=== PATIENT | male | born 1970 | race Caucasian/White ===

== ENCOUNTER 2018-10-05 21:48 | Emergency (ER) | payer MEDICAID, SELFPAY ==
[2018-10-05 21:52] VITALS: BP 136/61; PULSE 100; RESP 20; TEMP 36.7; O2SAT 99
--- NOTE | 2018-10-05 21:56 | DI.RAD_ITS ---
SYMPTOM/DIAGNOSIS: FELL, PAIN RIGHT ANKLE: No fracture or ankle mortise widening is seen. No talar dome defect is seen. There is spurring at the Achilles insertion on the calcaneus. IMPRESSION: No acute abnormality.
--- NOTE | 2018-10-05 21:57 | W.ED.GENAD ---
Discharge Plan Disposition Patient Disposition: HOME Condition: Good Discharge Details Chief Complaint: Orthopedic Clinical Impression: Right ankle pain Primary Care Provider: [place] [place] Provider: Alfredo Yen Home Meds and New Rx's Prescriptions: No Action metformin 1,000 mg Tablet 1,000 mg PO BID RF: 0 cholecalciferol (vitamin D3) [Vitamin D3] 1,000 unit Capsule 1,000 unit PO DAILY RF: 0 celecoxib [Celebrex] 50 mg Capsule 50 mg PO BID RF: 0 melatonin 10 mg Tablet 20 mg PO HS PRNRF: 0 Discharge Instructions Instructions: Leg Pain (ED) Additional Instructions: Please take Tylenol and Motrin as needed for pain. Please use ice on and off every 15-minute of your ankle to reduce the swelling. Please use the brace as directed. if you notice any worsening of your symptoms, or any new symptoms such as vomiting, diarrhea, fever, chills, shortness of breath, chest pain, numbness, weakness, or fainting , please return immediately to the emergency department for reevaluation. Please follow up with your primary care provider as soon as possible for reassessment and reevaluation. As always, it was a pleasure participating in your medical care today. Referrals: [place] [Primary Care Provider] - Medical Decision Making This is a pleasant 48-year-old male who presents with pain in his right ankle after jumping one-story off of his house. He thought he was going to land in a snow bank but he did not. He has notable pain at the medial and lateral malleoli. I am concern for potential fracture. He does ambulate with a notable limp while utilizing a cane physical exam demonstrates normal neurovascular exam, no sensory deficits or vascular deficits. We will get an x-ray to rule out fracture. We will give Tylenol Motrin for pain. 10:38 PM X-ray results per virtual radiology have returned and demonstrate no evidence of acute process or fracture. We will give him a lace up ankle brace, he has a cane already, and continued instructions for Tylenol Motrin and ice. We discussed red flags which to return he understands. I have extensively reviewed the treatment plan and discharge instructions with the patient. I have addressed all patient concerns at this time. The patient was made aware of what symptoms to monitor for that would warrant a return to the emergency department. Discussed the plan with the patient, they demonstrate verbal understanding and agreement with our assessment and plan at this time. FINDINGS: Bones/joints: No acute fracture or subluxation. Posterior calcaneal spur. Soft tissues: Normal. IMPRESSION: No acute bony pathology. Thank you for allowing us to participate in the care of your patient. Dictated and Authenticated by: Lina Prince MD 10/05/2018 10:34 PM Eastern Time ([place] & [place]) HPI General Date/Time Provider Initiated Documentation: 10/05/18 21:49. HPI Narrative: This is a 48-year-old male with no significant past medical history who presents today for right ankle pain. The patient jumped off of a one-story building into what he thought was a snow bank but turned out to not be a snow bank. He had notable pain on his right ankle as soon as he landed. Pain is worse with movement. Definitely worse with ambulation. Pain is present on the medial and lateral aspect of his ankle. He has been using a Lidoderm patch, but denies any Tylenol or Motrin use. He did take Celebrex this morning. He denies any associated numbness tingling or weakness. He denies any pain in his knee or his hip. He has no additional complaints or modifying factors at this time. Related Data Home Medications Medication Instructions Recorded Confirmed celecoxib [Celebrex] 50 mg PO BID 10/05/18 cholecalciferol (vitamin D3) 1,000 unit PO DAILY 10/05/18 10/05/18 [Vitamin D3] melatonin 20 mg PO HS PRN 10/05/18 10/05/18 metformin 1,000 mg PO BID 10/05/18 10/05/18 Allergies Allergy/AdvReac Type Severity Reaction Status Date / Time No Known Allergies Allergy Unverified 10/05/18 21:55 General Stated Complaint: Orthopedic ALEXIS: 4 Review of Systems Review of Systems All systems reviewed & are unremarkable except as noted in HPI and below PFSH Social History Smoking/Tobacco Use Status: Former Tobacco Use Exam Narrative Exam Narrative: 1.Const: Well-nourished, Well-developed, appearing stated age 2.Eyes: PERRL, no conjunctival injection, and symmetrical lids. 3.ENT: Atraumatic external nose and ears. Moist MM. Neck: Symmetric, trachea midline, No thyromegaly. 4.CVS: +S1/S2, No murmurs or gallops. Peripheral pulses 2+ and equal in all extremities. Brisk capillary refill in all extremities. 5.RESP: Unlabored respiratory effort. Clear to auscultation bilaterally. No wheezes rales or rhonchi 6.GI: Soft, Nontender/Nondistended, No hepatosplenomegaly. No guarding or rebound. 7.MSK: Normocephalic/Atraumatic, Extremities w/o deformity. No cyanosis or clubbing, notable tenderness at the medial and lateral malleoli, pain worse with movement and palpation. No significant laxity on pronation or supination of the ankle. Normal strength for flexion and extension however it is slightly limited by pain. No tenderness over the right knee, or hips. No other abnormalities. Two-point discrimination is present on the foot, including at the toes distal to the injury site. Brisk capillary refill, and dorsalis pedis is +2 bilaterally 8.Skin: Warm, Dry. No rashes or lesions. 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 Sensation grossly intact, no focal neurologic deficits. 10.Psych: (AAO) x3. Appropriate mood and affect Course Vital Signs Temperature 36.7 C 10/05/18 21:52 Pulse 100 H 10/05/18 21:52 Respiratory Rate 20 10/05/18 21:52 Blood Pressure 136/61 10/05/18 21:52 Pulse Oximetry 99 10/05/18 21:52 Temperature 36.7 C 10/05/18 21:52 Temperature Source Skin 10/05/18 21:52 Pulse 100 H 10/05/18 21:52 Respiratory Rate 20 10/05/18 21:52 Blood Pressure 136/61 10/05/18 21:52 Blood Pressure Position Sitting 10/05/18 21:52 Pulse Oximetry 99 10/05/18 21:52 Oxygen Delivery Method Room Air 10/05/18 21:52 Oxygen Flow Rate 0 10/05/18 21:52 Pain Level 6 10/05/18 21:52
--- NOTE | 2018-10-05 22:02 | ED.GENADUL_ITS ---
Discharge Plan Disposition Patient Disposition: HOME Condition: Good Discharge Details Chief Complaint: Orthopedic Clinical Impression: Right ankle pain Primary Care Provider: [place] [place] Provider: Alfredo Yen Home Meds and New Rx's Prescriptions: No Action metformin 1,000 mg Tablet 1,000 mg PO BID RF: 0 cholecalciferol (vitamin D3) [Vitamin D3] 1,000 unit Capsule 1,000 unit PO DAILY RF: 0 celecoxib [Celebrex] 50 mg Capsule 50 mg PO BID RF: 0 melatonin 10 mg Tablet 20 mg PO HS PRNRF: 0 Discharge Instructions Instructions: Leg Pain (ED) Additional Instructions: Please take Tylenol and Motrin as needed for pain. Please use ice on and off every 15-minute of your ankle to reduce the swelling. Please use the brace as directed. if you notice any worsening of your symptoms, or any new symptoms such as vomiting, diarrhea, fever, chills, shortness of breath, chest pain, numbness, weakness, or fainting , please return immediately to the emergency department for reevaluation. Please follow up with your primary care provider as soon as possible for reassessment and reevaluation. As always, it was a pleasure participating in your medical care today. Referrals: [place] [Primary Care Provider] - Medical Decision Making This is a pleasant 48-year-old male who presents with pain in his right ankle after jumping one-story off of his house. He thought he was going to land in a snow bank but he did not. He has notable pain at the medial and lateral malleoli. I am concern for potential fracture. He does ambulate with a notable limp while utilizing a cane physical exam demonstrates normal neurovascular exam, no sensory deficits or vascular deficits. We will get an x- ray to rule out fracture. We will give Tylenol Motrin for pain. 10:38 PM X-ray results per virtual radiology have returned and demonstrate no evidence of acute process or fracture. We will give him a lace up ankle brace, he has a cane already, and continued instructions for Tylenol Motrin and ice. We discussed red flags which to return he understands. I have extensively reviewed the treatment plan and discharge instructions with the patient. I have addressed all patient concerns at this time. The patient was made aware of what symptoms to monitor for that would warrant a return to the emergency department. Discussed the plan with the patient, they demonstrate verbal understanding and agreement with our assessment and plan at this time. FINDINGS: Bones/joints: No acute fracture or subluxation. Posterior calcaneal spur. Soft tissues: Normal. IMPRESSION: No acute bony pathology. Thank you for allowing us to participate in the care of your patient. Dictated and Authenticated by: Lina Prince MD 10/05/2018 10:34 PM Eastern Time ([place]) HPI General Date/Time Provider Initiated Documentation: 10/05/18 21:49 . HPI Narrative: This is a 48-year-old male with no significant past medical history who presents today for right ankle pain. The patient jumped off of a one-story building into what he thought was a snow bank but turned out to not be a snow bank. He had notable pain on his right ankle as soon as he landed. Pain is worse with movement. Definitely worse with ambulation. Pain is present on the medial and lateral aspect of his ankle. He has been using a Lidoderm patch, but denies any Tylenol or Motrin use. He did take Celebrex this morning. He denies any associated numbness tingling or weakness. He denies any pain in his knee or his hip. He has no additional complaints or modifying factors at this time. Related Data Home Medications Medication Instructions Recorded Confirmed celecoxib [Celebrex] 50 mg PO BID 10/05/18 cholecalciferol (vitamin D3) 1,000 unit PO DAILY 10/05/18 10/05/18 [Vitamin D3] melatonin 20 mg PO HS PRN 10/05/18 10/05/18 metformin 1,000 mg PO BID 10/05/18 10/05/18 Allergies Allergy/AdvReac Type Severity Reaction Status Date / Time No Known Allergies Allergy Unverified 10/05/18 21:55 General Stated Complaint: Orthopedic ALEXIS: 4 Review of Systems Review of Systems All systems reviewed & are unremarkable except as noted in HPI and below PFSH Social History Smoking/Tobacco Use Status: Former Tobacco Use Exam Narrative Exam Narrative: 1.Const: Well-nourished, Well-developed, appearing stated age 2.Eyes: PERRL, no conjunctival injection, and symmetrical lids. 3.ENT: Atraumatic external nose and ears. Moist MM. Neck: Symmetric, trachea midline, No thyromegaly. 4.CVS: +S1/S2, No murmurs or gallops. Peripheral pulses 2+ and equal in all extremities. Brisk capillary refill in all extremities. 5.RESP: Unlabored respiratory effort. Clear to auscultation bilaterally. No wheezes rales or rhonchi 6.GI: Soft, Nontender/Nondistended, No hepatosplenomegaly. No guarding or rebound. 7.MSK: Normocephalic/Atraumatic, Extremities w/o deformity. No cyanosis or clubbing, notable tenderness at the medial and lateral malleoli, pain worse with movement and palpation. No significant laxity on pronation or supination of the ankle. Normal strength for flexion and extension however it is slightly limited by pain. No tenderness over the right knee, or hips. No other abnormalities. Two-point discrimination is present on the foot, including at the toes distal to the injury site. Brisk capillary refill, and dorsalis pedis is +2 bilaterally 8.Skin: Warm, Dry. No rashes or lesions. 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 Sensation grossly intact, no focal neurologic deficits. 10.Psych: (AAO) x3. Appropriate mood and affect Course Vital Signs Temperature 36.7 C 10/05/18 21:52 Pulse 100 H 10/05/18 21:52 Respiratory Rate 20 10/05/18 21:52 Blood Pressure 136/61 10/05/18 21:52 Pulse Oximetry 99 10/05/18 21:52 Temperature 36.7 C 10/05/18 21:52 Temperature Source Skin 10/05/18 21:52 Pulse 100 H 10/05/18 21:52 Respiratory Rate 20 10/05/18 21:52 Blood Pressure 136/61 10/05/18 21:52 Blood Pressure Position Sitting 10/05/18 21:52 Pulse Oximetry 99 10/05/18 21:52 Oxygen Delivery Method Room Air 10/05/18 21:52 Oxygen Flow Rate 0 10/05/18 21:52 Pain Level 6 10/05/18 21:52
[2018-10-05] MEDS: Acetaminophen 500 MG TAB 1000 MG PO (22:05)
[2018-10-05] MEDS: Ibuprofen 800 MG TAB PO (22:05)
--- NOTE | 2018-10-05 22:34 | DI.VRAD_ITS ---
EXAM: XR Right Ankle Complete, 3 or more Views EXAM DATE/TIME: 10/05/2018 9:57 PM CLINICAL HISTORY: 48 years old, male; Pain; Ankle; Right; Patient HX: Jumped off of roof to avoid fall, has prior sprain injuries; Additional info: Pain at lateral and medial mal TECHNIQUE: XR Right ankle 3 or more views. COMPARISON: No relevant prior studies available. FINDINGS: Bones/joints: No acute fracture or subluxation. Posterior calcaneal spur. Soft tissues: Normal. IMPRESSION: No acute bony pathology. Dictated and Authenticated by: Lina Prince MD. Ordering:CHARIS Fuentes MD
== END 2018-10-05 22:51 | disposition home or self-care (01) ==
PROVIDERS: Emergency Provider Student in an Organized Health Care Education/Training Program
DX: M25.571 Pain in right ankle and joints of right foot (principal); W13.2XXA Fall from, out of or through roof, initial encounter
CPT/HCPCS: 29125; 99283; 73610; 99282; E0114; L1902

== ENCOUNTER 2019-02-02 12:29 | Emergency (ER) | payer MEDICAID, SELFPAY ==
[2019-02-02 12:34] VITALS: BP 132/85; PULSE 80; RESP 14; TEMP 36.6; O2SAT 98
--- NOTE | 2019-02-02 12:43 | W.ED.GENAD ---
Discharge Plan Disposition Patient Disposition: HOME Condition: Good Discharge Details Chief Complaint: Orthopedic Clinical Impression: Chronic left shoulder pain Primary Care Provider: [facility] Provider: Alfredo Yen Home Meds and New Rx's Prescriptions: New lidocaine [Lidoderm] 1 PATCH patch 1 patch Topical Q24H Qty: 4 RF: 0 prednisone 50 MG tablet 50 mg PO DAILY Qty: 5 RF: 0 No Action cholecalciferol (vitamin D3) [Vitamin D3] 1,000 unit Capsule 1,000 unit PO DAILY RF: 0 celecoxib [Celebrex] 50 mg Capsule 50 mg PO BID RF: 0 melatonin 10 mg Tablet 20 mg PO HS PRNRF: 0 Discharge Instructions Instructions: Shoulder Sprain (ED) Additional Instructions: Your x-ray shows no evidence of fracture but does show some chronic calcifications. Please use the Lidoderm patch as directed. Please take 1000 mg maximum dose of Tylenol every 6 hours. Please follow-up promptly with your orthopedic surgeon at the [facility] for reassessment. If you notice any worsening of your symptoms, or any new symptoms such as vomiting, diarrhea, fever, chills, shortness of breath, chest pain, numbness, weakness, or fainting , please return immediately to the emergency department for reevaluation. Please follow up with your primary care provider as soon as possible for reassessment and reevaluation. As always, it was a pleasure participating in your medical care today. Medical Decision Making This is a pleasant 48-year-old male who presents for 2 to 3 months of left shoulder pain. Worsened with movement. He does see an orthopedic surgeon at the [facility] chronically for right shoulder pain, however the patient states that the orthopedic surgeon does not want to address left shoulder at this time. No significant acute changes. Exam demonstrates notable worsening of pain with external rotation as well as abduction at the shoulder. Particularly greater than 90 degrees. Notable reproducible tenderness over the biceps tendon. He is a and has a history of doing multiple push-ups, 1 to be surprised if he has some biceps tendinitis and tendinosis. I am sure there is also some chronic rotator cuff component injury. We will get an x-ray to rule out acute process which I feel unlikely. We will give a Lidoderm patch, dose of steroids. 1:39 PM X-ray results are negative for any acute process, there is notable degenerative changes. I do feel that the patient most likely has chronic tendinitis in conjunction with chronic rotator cuff problems. Recommended close follow-up with his orthopedic surgeon on an outpatient basis at the [facility]. we will give 5 days of steroids, and recommend continue Tylenol in conjunction with his chronic Celebrex. I have extensively reviewed the treatment plan and discharge instructions with the patient and their family. I have addressed all patient concerns at this time. The patient and family was made aware of what symptoms to monitor for that would warrant a return to the emergency department. Discussed the plan with the patient and family, they demonstrate verbal understanding and agreement with our assessment and plan at this time. Exam(s) a RAD:XR shoulder LT complete 2+V SYMPTOMS/DIAGNOSIS: LT SHOULDER PAIN FOR 2 MONTHS LEFT SHOULDER: Five views were obtained. There are minimal hypertrophic degenerative changes of the acromioclavicular and glenohumeral joint. No other bony or soft tissue abnormality seen. No evidence of fracture or dislocation. Ordered By: Alfredo Yen DO CC: HPI General Date/Time Provider Initiated Documentation: 02/02/19 12:31. HPI Narrative: This is a 48-year-old male with a past medical history of right shoulder problems who presents today for left shoulder pain. He states that it is been present for the last 2 to 3 months, it is worse when he moves his arm. He has history of chronic right shoulder pain he has notably been favoring the right shoulder and using the left shoulder significantly more. Pain seems to be minimally improved with acetaminophen. He is on chronic Celebrex. He did have a single episode of tingling that occurred earlier today in his arm and hand, this occurred while driving. It is completely resolved though at this time. He denies any other complaints at this time. He does see an orthopedic surgeon regularly at the [facility], however he states that that surgeon is currently just focused on his right shoulder and not his left. He denies any other complaints. He denies any history of cardiac disease, chest heaviness, chest tightness or shortness of breath. He denies any previous history of stroke. He has no other complaints at this time. Past medical history is positive for PTSD for which he has a service dog Related Data Home Medications Medication Instructions Recorded Confirmed celecoxib [Celebrex] 50 mg PO BID 10/05/18 02/02/19 cholecalciferol (vitamin D3) 1,000 unit PO DAILY 10/05/18 02/02/19 [Vitamin D3] melatonin 20 mg PO HS PRN 10/05/18 02/02/19 lidocaine [Lidoderm] 1 patch TOPICAL Q24H #4 patch 02/02/19 prednisone 50 mg PO DAILY #5 tab 02/02/19 Previous Rx's Medication Instructions Recorded lidocaine [Lidoderm] 1 patch TOPICAL Q24H #4 patch 02/02/19 prednisone 50 mg PO DAILY #5 tab 02/02/19 Allergies Allergy/AdvReac Type Severity Reaction Status Date / Time No Known Allergies Allergy Unverified 02/02/19 12:37 General Stated Complaint: Orthopedic ALEXIS: 4 Review of Systems Review of Systems All systems reviewed & are unremarkable except as noted in HPI and below PFSH Social History Smoking/Tobacco Use Status: Former Tobacco Use Drug use: Never Do you feel safe at home: Yes Do you feel safe in your relationship?: Yes Exam Narrative Exam Narrative: 1.Const: Well-nourished, Well-developed, appearing stated age 2.Eyes: PERRL, no conjunctival injection, and symmetrical lids. 3.ENT: Atraumatic external nose and ears. Moist MM. Neck: Symmetric, trachea midline, No thyromegaly. 4.CVS: +S1/S2, No murmurs or gallops. Peripheral pulses 2+ and equal in all extremities. Brisk capillary refill in all extremities. 5.RESP: Unlabored respiratory effort. Clear to auscultation bilaterally. No wheezes rales or rhonchi 6.GI: Soft, Nontender/Nondistended, No hepatosplenomegaly. No guarding or rebound. 7.MSK: Normocephalic/Atraumatic, Extremities w/o deformity. No cyanosis or clubbing, movement of the left shoulder demonstrates no pain or tenderness when the shoulder is angle less than 45 degrees for both flexion extension abduction, abduction and internal rotation. There is mild to moderate pain with external rotation, primarily over the biceps tendon. Patient has notable limitation of movement with abduction greater than 90 degrees. Excessive pain at this location as well. No other significant pain or tenderness. Patient has +5 out of 5 strength in the left and right distal hands in the medial, ulnar, radial nerve distribution, intact light touch sensation in the left and right hands, and +2 over 2 radial pulses. 8.Skin: Warm, Dry. No rashes or lesions. 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 Sensation grossly intact, no focal neurologic deficits. All 6 cardinal planes of vision are fully intact. No evidence of rotatory or vertical nystagmus. The patient demonstrated a normal [id number], good dexterity. There was no evidence of dysdiadochokinesia. Patient was able to ambulate without difficulty. There was no wide-based gait. Romberg, and [id number] are both normal on testing. Sensation was intact bilaterally as well as muscle strength bilaterally for all extremities. Patient was able to verbalize butter cup with no slurring, or miss pronunciation. 10.Psych: (AAO) x3. Appropriate mood and affect Course Vital Signs Temperature 36.6 C 02/02/19 12:34 Pulse 80 02/02/19 12:34 Respiratory Rate 14 02/02/19 12:34 Blood Pressure 132/85 02/02/19 12:34 Pulse Oximetry 98 02/02/19 12:34 Temperature 36.6 C 02/02/19 12:34 Temperature Source Temporal Artery Scan 02/02/19 12:34 Pulse 80 02/02/19 12:34 Respiratory Rate 14 02/02/19 12:34 Respiratory Effort Non-Labored 02/02/19 12:36 Blood Pressure 132/85 02/02/19 12:34 Blood Pressure Position Sitting 02/02/19 12:34 Pulse Oximetry 98 02/02/19 12:34 Oxygen Delivery Method Room Air 02/02/19 12:34 Oxygen Flow Rate 0 02/02/19 12:34 Pain Level 4 02/02/19 12:34
[2019-02-02] MEDS: predniSONE 20 MG TAB 60 MG PO (12:48)
[2019-02-02] MEDS: Lidocaine 5% Patch 1 PATCH TP (12:49)
--- NOTE | 2019-02-02 12:49 | ED.GENADUL_ITS ---
Discharge Plan Disposition Patient Disposition: HOME Condition: Good Discharge Details Chief Complaint: Orthopedic Clinical Impression: Chronic left shoulder pain Primary Care Provider: Ashley,Local ED Provider: Alfredo Yen Home Meds and New Rx's Prescriptions: New lidocaine [Lidoderm] 1 PATCH patch 1 patch Topical Q24H Qty: 4 RF: 0 prednisone 50 MG tablet 50 mg PO DAILY Qty: 5 RF: 0 No Action cholecalciferol (vitamin D3) [Vitamin D3] 1,000 unit Capsule 1,000 unit PO DAILY RF: 0 celecoxib [Celebrex] 50 mg Capsule 50 mg PO BID RF: 0 melatonin 10 mg Tablet 20 mg PO HS PRNRF: 0 Discharge Instructions Instructions: Shoulder Sprain (ED) Additional Instructions: Your x-ray shows no evidence of fracture but does show some chronic calcifications. Please use the Lidoderm patch as directed. Please take 1000 mg maximum dose of Tylenol every 6 hours. Please follow-up promptly with your orthopedic surgeon at the [facility] for reassessment. If you notice any worsening of your symptoms, or any new symptoms such as vomiting, diarrhea, fever, chills, shortness of breath, chest pain, numbness, weakness, or fainting , please return immediately to the emergency department for reevaluation. Please follow up with your primary care provider as soon as possible for reassessment and reevaluation. As always, it was a pleasure participating in your medical care today. Medical Decision Making This is a pleasant 48-year-old male who presents for 2 to 3 months of left shoulder pain. Worsened with movement. He does see an orthopedic surgeon at the [facility] chronically for right shoulder pain, however the patient states that the orthopedic surgeon does not want to address left shoulder at this time. No significant acute changes. Exam demonstrates notable worsening of pain with external rotation as well as abduction at the shoulder. Particularly greater than 90 degrees. Notable reproducible tenderness over the biceps tendon. He is a and has a history of doing multiple push-ups, 1 to be surprised if he has some biceps tendinitis and tendinosis. I am sure there is also some chronic rotator cuff component injury. We will get an x-ray to rule out acute process which I feel unlikely. We will give a Lidoderm patch, dose of steroids. 1:39 PM X-ray results are negative for any acute process, there is notable degenerative changes. I do feel that the patient most likely has chronic tendinitis in conjunction with chronic rotator cuff problems. Recommended close follow-up with his orthopedic surgeon on an outpatient basis at the [facility]. we will give 5 days of steroids, and recommend continue Tylenol in conjunction with his chronic Celebrex. I have extensively reviewed the treatment plan and discharge instructions with the patient and their family. I have addressed all patient concerns at this time. The patient and family was made aware of what symptoms to monitor for that would warrant a return to the emergency department. Discussed the plan with the patient and family, they demonstrate verbal understanding and agreement with our assessment and plan at this time. Exam(s) a RAD:XR shoulder LT complete 2+V SYMPTOMS/DIAGNOSIS: LT SHOULDER PAIN FOR 2 MONTHS LEFT SHOULDER: Five views were obtained. There are minimal hypertrophic degenerative changes of the acromioclavicular and glenohumeral joint. No other bony or soft tissue abnormality seen. No evidence of fracture or dislocation. Ordered By: Alfredo Yen DO CC: HPI General Date/Time Provider Initiated Documentation: 02/02/19 12:31 . HPI Narrative: This is a 48-year-old male with a past medical history of right shoulder problems who presents today for left shoulder pain. He states that it is been present for the last 2 to 3 months, it is worse when he moves his arm. He has history of chronic right shoulder pain he has notably been favoring the right shoulder and using the left shoulder significantly more. Pain seems to be minimally improved with acetaminophen. He is on chronic Celebrex. He did have a single episode of tingling that occurred earlier today in his arm and hand, this occurred while driving. It is completely resolved though at this time. He denies any other complaints at this time. He does see an orthopedic surgeon regularly at the [facility], however he states that that surgeon is currently just focused on his right shoulder and not his left. He denies any other complaints. He denies any history of cardiac disease, chest heaviness, chest tightness or shortness of breath. He denies any previous history of stroke. He has no other complaints at this time. Past medical history is positive for PTSD for which he has a service dog Related Data Home Medications Medication Instructions Recorded Confirmed celecoxib [Celebrex] 50 mg PO BID 10/05/18 02/02/19 cholecalciferol (vitamin D3) 1,000 unit PO DAILY 10/05/18 02/02/19 [Vitamin D3] melatonin 20 mg PO HS PRN 10/05/18 02/02/19 lidocaine [Lidoderm] 1 patch TOPICAL Q24H #4 patch 02/02/19 prednisone 50 mg PO DAILY #5 tab 02/02/19 Previous Rx's Medication Instructions Recorded lidocaine [Lidoderm] 1 patch TOPICAL Q24H #4 patch 02/02/19 prednisone 50 mg PO DAILY #5 tab 02/02/19 Allergies Allergy/AdvReac Type Severity Reaction Status Date / Time No Known Allergies Allergy Unverified 02/02/19 12:37 General Stated Complaint: Orthopedic ALEXIS: 4 Review of Systems Review of Systems All systems reviewed & are unremarkable except as noted in HPI and below PFSH Social History Smoking/Tobacco Use Status: Former Tobacco Use Drug use: Never Do you feel safe at home: Yes Do you feel safe in your relationship?: Yes Exam Narrative Exam Narrative: 1.Const: Well-nourished, Well-developed, appearing stated age 2.Eyes: PERRL, no conjunctival injection, and symmetrical lids. 3.ENT: Atraumatic external nose and ears. Moist MM. Neck: Symmetric, trachea midline, No thyromegaly. 4.CVS: +S1/S2, No murmurs or gallops. Peripheral pulses 2+ and equal in all extremities. Brisk capillary refill in all extremities. 5.RESP: Unlabored respiratory effort. Clear to auscultation bilaterally. No wheezes rales or rhonchi 6.GI: Soft, Nontender/Nondistended, No hepatosplenomegaly. No guarding or rebound. 7.MSK: Normocephalic/Atraumatic, Extremities w/o deformity. No cyanosis or clubbing, movement of the left shoulder demonstrates no pain or tenderness when the shoulder is angle less than 45 degrees for both flexion extension abduction, abduction and internal rotation. There is mild to moderate pain with external rotation, primarily over the biceps tendon. Patient has notable limitation of movement with abduction greater than 90 degrees. Excessive pain at this location as well. No other significant pain or tenderness. Patient has +5 out of 5 strength in the left and right distal hands in the medial, ulnar, radial nerve distribution, intact light touch sensation in the left and right hands, and +2 over 2 radial pulses. 8.Skin: Warm, Dry. No rashes or lesions. 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 Sensation grossly intact, no focal neurologic deficits. All 6 cardinal planes of vision are fully intact. No evidence of rotatory or vertical nystagmus. The patient demonstrated a normal [id number], good dexterity. There was no evidence of dysdiadochokinesia. Patient was able to ambulate without difficulty. There was no wide-based gait. Romberg, and [id number] are both normal on testing. Sensation was intact bilaterally as well as muscle strength bilaterally for all extremities. Patient was able to verbalize butter cup with no slurring, or miss pronunciation. 10.Psych: (AAO) x3. Appropriate mood and affect Course Vital Signs Temperature 36.6 C 02/02/19 12:34 Pulse 80 02/02/19 12:34 Respiratory Rate 14 02/02/19 12:34 Blood Pressure 132/85 02/02/19 12:34 Pulse Oximetry 98 02/02/19 12:34 Temperature 36.6 C 02/02/19 12:34 Temperature Source Temporal Artery Scan 02/02/19 12:34 Pulse 80 02/02/19 12:34 Respiratory Rate 14 02/02/19 12:34 Respiratory Effort Non-Labored 02/02/19 12:36 Blood Pressure 132/85 02/02/19 12:34 Blood Pressure Position Sitting 02/02/19 12:34 Pulse Oximetry 98 02/02/19 12:34 Oxygen Delivery Method Room Air 02/02/19 12:34 Oxygen Flow Rate 0 02/02/19 12:34 Pain Level 4 02/02/19 12:34
--- NOTE | 2019-02-02 12:52 | DI.RAD_ITS ---
SYMPTOMS/DIAGNOSIS: LT SHOULDER PAIN FOR 2 MONTHS LEFT SHOULDER: Five views were obtained. There are minimal hypertrophic degenerative changes of the acromioclavicular and glenohumeral joint. No other bony or soft tissue abnormality seen. No evidence of fracture or dislocation.
== END 2019-02-02 13:54 | disposition home or self-care (01) ==
PROVIDERS: Emergency Provider Student in an Organized Health Care Education/Training Program
DX: M25.512 Pain in left shoulder (principal); G89.29 Other chronic pain; M25.511 Pain in right shoulder
CPT/HCPCS: 99283; 73030; J7512

== ENCOUNTER 2021-08-13 05:11 | Emergency (ER) | payer MEDICAID, SELFPAY ==
[2021-08-13 05:14] VITALS: BP 143/86; PULSE 72; RESP 18; TEMP 36.6; O2SAT 98
--- NOTE | 2021-08-13 05:15 | DI.CT_ITS ---
Exam(s) CT RENAL COLIC WO EXAM: CT RENAL COLIC WO CLINICAL HISTORY: right flank pain. TECHNIQUE: Imaging Protocol: Axial computed tomography images with coronal and sagittal reformatted images were created and reviewed CONTRAST MATERIAL: Intravenous: none Oral: None COMPARISON: No exams were available for comparison FINDINGS: VISUALIZED LUNG BASES: No nodules nor pleural effusions evident. ABDOMEN: There is no ascites. LIVER: Liver is hypodense implying steatosis. No discrete focal hepatic lesions. No dilatation of i ntrahepatic ducts. GALLBLADDER/BILIARY: Not seen CBD is not dilated. PANCREAS: No evidence of pancreatic mass nor dilatation of the pancreatic duct. There is, however, a single 2 millimeter parenchymal calcification in the uncinate process of the pancreas noted. SPLEEN: Normal size. There few splenic calcifications consistent granulomas. ADRENALS: There are no significant adrenal masses. KIDNEYS:There are 2 small nonobstructive calculi in left kidney, both measuring approximately 2 celio meters. There are no calculi evident in the right kidney. However, there is mild dilatation of the right collecting system which is due to a calculus in the lower right ureter at the ureterovesical ju nction which measures 3 x 2 millimeters. There are no calculi in the nondistended urinary bladder. Prostate not enlarged.. ABDOMINAL AORTA: Abdominal aorta is not enlarged. LYMPH NODES: There is no retroperitoneal nor paraaortic adenopathy. ABDOMINAL WALL: No evidence of significant anterior abdominal wall nor inguinal hernia. GI: There is no evidence of bowel obstruction, free air, nor abscess. PELVIS: LYMPH NODES: There is no intrapelvic nor inguinal adenopathy. GI: No evidence of appendicitis.There are few sigmoid diverticuli. No evidence of acute diverticulit is. URINARY BLADDER: As above. REPRODUCTIVE: Prostate not enlarged OSSEOUS: No significant osseous lesions. IMPRESSION: 1. Mild right-sided hydronephrosis and hydroureter with the culprit calculus measuring by 2 millimete rs and located at the right UVJ junction. 2. There are 2 tiny nonobstructive calculi in the opposite-left kidney. 3. Hepatic steatosis. Correlation appropriate blood work recommended. RADIATION DOSE DELIVERED: 744.47mGy.cm Total DLP DATA REPOSITORY: All CT scans at this facility are submitted to the National Radiology Data Registry (NRDR) Dose Index Registry (DIR) with the [employer] ([employer]). RADIATION OPTIMIZATION: All CT scans at this facility use at least one of these dose optimization te chniques: automated exposure control; mA and/or kV adjustment per patient size (includes targeted exa ms where dose is matched to clinical indication); or iterative reconstruction.
--- NOTE | 2021-08-13 05:21 | W.ED.GENAD ---
Discharge Plan Disposition Patient Disposition: HOME Condition: Good Discharge Details Clinical Impression: Calculus of ureterovesical junction (UVJ) Primary Care Provider: Ashley,Local ED Provider: Pierce Pal Meds and New Rx's Prescriptions: New Hydrocodone/Apap 5/325, 4 Tab [[place] 5/325, 4 Tabs/Btl] 1 tab PO BID Qty: 4 RF: 0 tamsulosin 0.4 mg capsule 0.4 mg PO DAILY Qty: 10 RF: 0 Continued cholecalciferol (vitamin D3) [Vitamin D3] 1,000 unit Capsule 1,000 unit PO DAILY RF: 0 celecoxib [Celebrex] 50 mg Capsule 50 mg PO BID RF: 0 melatonin 10 mg Tablet 20 mg PO HS PRNRF: 0 metformin 500 mg tablet extended release 24 hr PO RF: 0 Discharge Instructions Instructions: Hydrocodone/Acetaminophen (By mouth), Renal Colic (ED) Additional Instructions: You have a small kidney stone at the level of the bladder which hopefully will pass on its own as we discussed. Continue your Celebrex. Tylenol every 6 hours if needed for pain. Mcrae [place] if needed for severe pain. Strain your urine. Contact the [facility] for follow-up in 3 to 4 days if you have not passed the stone and you are still having symptoms. Return to ED for fever, uncontrolled pain, vomiting. Medical Decision Making Patient presenting with right flank pain with associated urinary symptoms and most likely has kidney stone. IV established and fluids started. Laboratory studies sent. Morphine and ketorolac given for pain. CT scan ordered. Patient CBC is normal. BMP with slightly elevated creatinine 1.5 but no recent baseline. Urine with blood only. CT scan shows a 3 x 2 distal UVJ stone with mild hydroureter and hydronephrosis. Patient's pain completely resolved at this point. Discussed findings with patient. Will start Flomax. He will continue his Celebrex. He will use Tylenol and if needed has been given for Mcrae Helena to go home with. He follows up at the [facility] and I have asked him to call their in the next 3 to 4 days if there is been no passage of stone and he still having symptoms. Return to ED for fever, uncontrolled pain, uncontrolled vomiting. HPI General Mode of arrival: ambulatory. Date/Time Provider Initiated Documentation: 08/13/21 05:20. Limitations to Documentation: no limitations. Information obtained by: patient and RN notes reviewed. HPI Narrative: Patient presents to ED with right mid low back pain. Pain woke him from sleep. It waxes and wanes in intensity and severity but never goes away. It does radiate somewhat down towards the low abdomen. He has had nausea but no vomiting. Tried taking a hot shower with no relief. He had a little bit of discomfort like this last week but it resolved on its own. He feels the need to constantly urinate but is unable to. He denies fever. He denies chest pain, shortness of breath, cough. He finally presents to ED for evaluation as the pain is unrelenting and severe. Related Data Home Medications Medication Instructions Recorded Confirmed celecoxib [Celebrex] 50 mg PO BID 10/05/18 08/13/21 cholecalciferol (vitamin D3) 1,000 unit PO DAILY 10/05/18 08/13/21 [Vitamin D3] melatonin 20 mg PO HS PRN 10/05/18 08/13/21 HYDROcodone/APAP 5/325, 4 tab 1 tab PO BID #4 cap 08/13/21 [[place] 5/325, 4 tabs/btl] metformin mg PO 08/13/21 tamsulosin 0.4 mg PO DAILY #10 cap 08/13/21 Previous Rx's Medication Instructions Recorded HYDROcodone/APAP 5/325, 4 tab 1 tab PO BID #4 cap 08/13/21 [[place] 5/325, 4 tabs/btl] tamsulosin 0.4 mg PO DAILY #10 cap 08/13/21 Allergies Allergy/AdvReac Type Severity Reaction Status Date / Time No Known Allergies Allergy Unverified 02/02/19 12:37 General Stated Complaint: FlankPain ALEXIS: 4 Review of Systems Narrative: As documented in HPI otherwise negative as below. Const: no fever, chills, weakness Resp: no cough, SOB, pleuritic pain CV: no CP, diaphoresis, edema, syncope GI: no abdominal pain, vomiting, diarrhea Neuro: no headache, numbness, focal weakness, confusion PFSH All Active Problems (Updated 08/13/21 @ 07:04 by Pierce Pal MD) Calculus of ureterovesical junction (UVJ) (Acute) Medical History Diabetes mellitus Surgical History S/P rotator cuff surgery Social History Smoking/Tobacco Use Status: Former Tobacco Use Smoking risk assessment performed?: Yes Drug use: Never Substance use type: does not use Do you feel safe at home: Yes Do you feel safe in your relationship?: Yes Exam Narrative Exam Narrative: Const: WDWN male in NAD. HEENT: NC/AT. Normal facial exam. Eyes: Normal conjunctiva and sclera. Neck: Supple. Trachea midline. Lungs: Normal respiratory effort. Lungs are clear. Cor: RRR without murmur/gallop. Good radial pulses. GI: Soft. NT/ND. No guarding or rebound. Back: No CVAT : Normal. No hernia or testicular tenderness. Neuro: A+O x 3. Normal speech, mentation, gait. Cranial nerves II - XII grossly intact. No gross motor or sensory deficit. Ext: No C/C/E. Skin: Warm and dry without rash. Course Vital Signs Vital signs: Vital Signs Temperature 97.9 F 08/13/21 05:14 Pulse 72 08/13/21 05:14 Respiratory Rate 18 08/13/21 05:14 Blood Pressure 143/86 H 08/13/21 05:14 Pulse Oximetry 98 08/13/21 05:14 Temperature 97.9 F 08/13/21 05:14 Temperature Source Tympanic 08/13/21 05:14 Pulse 72 08/13/21 05:14 Respiratory Rate 18 08/13/21 05:14 Respiratory Effort 08/13/21 05:19 Blood Pressure 143/86 H 08/13/21 05:14 Blood Pressure Position Supine 08/13/21 05:14 Pulse Oximetry 98 08/13/21 05:14 Oxygen Delivery Method Room Air 08/13/21 05:14 Oxygen Flow Rate 0 08/13/21 05:14 Pain Level 7 08/13/21 05:14
[2021-08-13 05:40] LABS: Bilirubin Negative (Negative); Blood Large (Negative); Clarity Sl Cloudy (Clear); Glucose Negative (Negative); Ketones Trace mg/dL (Negative); Leukocyte Esterase Negative (Negative); Nitrite Negative (Negative); Specific Gravity >= 1.030 (1.005-1.025); Urobilinogen 0.2 EU/dL (Up TO 0.2); pH 5.5 (5-8)
[2021-08-13] MEDS: Ketorolac 15 MG/ML VIAL IVP (05:40)
[2021-08-13 05:41] LABS: Abs Immature Grans 0.02 10^3/uL (0.0-0.06); Absolute Basophil Count 0.07 10^3/uL (0.0-0.2); Absolute Eosinophil Count 0.21 10^3/uL (0.0-0.7); Absolute Lymphocyte Count 2.18 10^3/uL (1.2-3.4); Absolute Monocyte Count 0.91 10^3/uL (0.1-0.8); Absolute Neutrophil Count 4.89 10^3/uL (1.2-6.7); Basophils % 0.8; Eosinophils % 2.5; HGB 14.2 g/dL (13.5-17.5); Immature Grans % 0.2; Lymphocytes % 26.3; MCH 29.9 pg (27.0-33.0); MCHC 32.3 % (32.0-36.0); MCV 92.6 fL (80-95); MPV 9.6 fL (8.0-11.0); Neutrophils % 59.2; Nucleated RBC 0 %; Platelet Count 370 10^3/uL (130-400); RBC 4.75 10^6/uL (4.36-5.78); RDW 11.8 % (11.8-14.1); RDW-SD 40.4 fL; WBC 8.28 10^3/uL (4.4-10.8)
[2021-08-13] MEDS: Normal Saline 1,000 ML 1000 ML IV (05:42)
[2021-08-13 05:52] LABS: Bacteria Moderate HPF (Negative); C & S Indicated? No/Sq. Contamination; Casts Negative LPF (Negative); Crystals Negative HPF (Negative); Epithelial Cells Moderate HPF (Negative); Mucus Trace (Negative); RBC >50 HPF (0-2)
[2021-08-13 05:54] LABS: Anion Gap 6.8 mmol/L (3-11); BUN 20 mg/dL (7-18); CO2 28.2 mmol/L (21.0-32.0); CREATININE 1.5 mg/dL (0.70-1.30); Calcium 9.2 mg/dL (8.5-10.1); Chloride 103 mmol/L (98-107); Estimated GFR 49.74 (mL/min/1.73m2); Glucose 169 mg/dL (74-106); Potassium 4.4 mmol/L (3.5-5.1); Sodium 138 mmol/L (136-145)
--- NOTE | 2021-08-13 06:55 | DI.VRAD_ITS ---
PROCEDURE INFORMATION: Exam: CT Abdomen And Pelvis Without Contrast Exam date and time: 08/13/2021 5:29 AM Age: 51 years old Clinical indication: Other: Right flank pain TECHNIQUE: Imaging protocol: Computed tomography of the abdomen and pelvis without contrast. Radiation optimization: All CT scans at this facility use at least one of these dose optimization techniques: automated exposure control; mA and/or kV adjustment per patient size (includes targeted exams where dose is matched to clinical indication); or iterative reconstruction. COMPARISON: CT CHEST WITH CONTRAST 12/14/2016 7:06 PM FINDINGS: Liver: Hepatic steatosis is present. Gallbladder and bile ducts: Normal. No calcified stones. No ductal dilation. Pancreas: Normal. No ductal dilation. Spleen: Splenic granuloma noted Adrenal glands: Normal. No mass. Kidneys and ureters: Mild right-sided hydronephrosis and hydroureter noted to the level of an obstructing distal right ureteral stone measuring 3 x 2 mm just proximal to the UVJ. Stomach and bowel: Unremarkable. No obstruction. No mucosal thickening. Appendix: No evidence of appendicitis. Intraperitoneal space: Unremarkable. No free air. No significant fluid collection. Vasculature: Unremarkable. No abdominal aortic aneurysm. Lymph nodes: Unremarkable. No enlarged lymph nodes. Urinary bladder: Unremarkable as visualized. Reproductive: Unremarkable as visualized. Bones/joints: Unremarkable. No acute fracture. Soft tissues: Unremarkable. Other findings: Non-obstructive left sided micronephrolithiasis is noted. IMPRESSION: Mild right-sided hydronephrosis and hydroureter noted to the level of an obstructing distal right ureteral stone measuring 3 x 2 mm just proximal to the UVJ. Dictated and Authenticated by: Marin Dexter MD. Ordering:RONAL Pelayo MD
[2021-08-13] MEDS: Tamsulosin 0.4 MG CAPCR PO (07:23)
== END 2021-08-13 07:26 | disposition home or self-care (01) ==
LOC: ER 07:06
PROVIDERS: Emergency Provider Emergency Medicine
DX: N13.2 Hydronephrosis with renal and ureteral calculous obstruction (principal)
CPT/HCPCS: 36415; 80048; 96361; 96374; 99284; 74176; 81003; 81015; 85025; J1885